=== PATIENT | male | born 1955 | race Caucasian/White ===

== ENCOUNTER → 2016-05-14 | Outpatient (CLI) | payer BC ==
[2016-05-14 13:05] LABS: BASOPHILS % (AUTO) 1 % (0-2); EOSINOPHILS # (AUTO) 0.3 10^3uL; EOSINOPHILS % (AUTO) 4 % (0-4); LYMPHOCYTES # (AUTO) 1.9 X10^3; MEAN CORPUSCULAR HEMOGLOBIN 31.6 PG (26.0-34.0); MEAN CORPUSCULAR HGB CONC 34.2 g/dL (31.0-37.0); MEAN CORPUSCULAR VOLUME 92 FL (80-100); MEAN PLATELET VOLUME 9.5 FL (6.0-9.5); MONOCYTES # (AUTO) 0.6 X10^3; MONOCYTES % (AUTO) 9 % (3-11); NEUTROPHILS # (AUTO) 4.5 X10^3; NEUTROPHILS % (AUTO) 61 % (51-67); PLATELET COUNT 249 10^3uL (150-450); WHITE BLOOD COUNT 7.41 10^3uL (4.0-11.0)
[2016-05-14 13:11] LABS: ALBUMIN 4.6 g/dL (3.4-5.0); ALKALINE PHOSPHATASE 62 U/L (38-126); ANION GAP 13.8 MEQ/L (3-15); BUN/CREATININE RATIO 27 (10-20); CALCULATED IONIZED CALCIUM 4.3 mg/dL (3.8-4.6); TOTAL PROTEIN 7.2 g/dL (6.4-8.5)
[2016-05-14 13:34] LABS: BILIRUBIN,URINE Negative (Negative); CLARITY,URINE Clear; COLOR,URINE Yellow; GLUCOSE, URINE (UA) Negative (Negative); LEUKOCYTE ESTERASE ,URINE Negative (Negative); PH,URINE 5.5 (5.0 - 8.0); UROBILINOGEN,URINE 0.2 mg/dL (0.2-1.0)
[2016-05-14 13:58] LABS: RBC,URINE 0-2 /HPF; URINE CENTRIFUGED VOLUME 12 mL
--- NOTE | 2016-05-14 14:24 | Diagnostic Imaging Report ---
INDICATION: Tongue cancer and swollen nodes. TECHNIQUE: CT neck soft tissues obtained without IV contrast. CT chest obtained without IV contrast. COMPARISON: There is no prior study for comparison. CT NECK FINDINGS: The study is limited by the lack of IV contrast. The parotid glands appear symmetric and unremarkable. The submandibular glands are not well-visualized and may be atrophic or absent. The thyroid gland showed no focal abnormality. There are no appreciably enlarged lymph nodes in the neck. There is no airway displacement or asymmetry. There is no retropharyngeal mass or abscess. There is some metallic artifact from the patient's dental work. There is degenerative change in the cervical spine diffusely. CT CHEST FINDINGS: There are no appreciably enlarged mediastinal nodes or hilar nodes. There are no enlarged axillary nodes or chest wall masses. There are a few scattered coronary artery calcifications. There is no pleural or pericardial fluid. Lung parenchymal windows show no discrete lesions. IMPRESSION: 1. CT neck is limited by lack of IV contrast but shows no overt adenopathy or soft tissue mass. 2. CT chest was unremarkable. Dictated by: Dictated on workstation # [id number]
--- NOTE | 2016-05-14 15:57 | Diagnostic Imaging Report ---
INDICATION: Tongue cancer and swollen nodes. TECHNIQUE: CT neck soft tissues obtained without IV contrast. CT chest obtained without IV contrast. COMPARISON: There is no prior study for comparison. CT NECK FINDINGS: The study is limited by the lack of IV contrast. The parotid glands appear symmetric and unremarkable. The submandibular glands are not well-visualized and may be atrophic or absent. The thyroid gland showed no focal abnormality. There are no appreciably enlarged lymph nodes in the neck. There is no airway displacement or asymmetry. There is no retropharyngeal mass or abscess. There is some metallic artifact from the patient's dental work. There is degenerative change in the cervical spine diffusely. CT CHEST FINDINGS: There are no appreciably enlarged mediastinal nodes or hilar nodes. There are no enlarged axillary nodes or chest wall masses. There are a few scattered coronary artery calcifications. There is no pleural or pericardial fluid. Lung parenchymal windows show no discrete lesions. IMPRESSION: 1. CT neck is limited by lack of IV contrast but shows no overt adenopathy or Soft tissue mass. 2. CT chest was unremarkable. Dictated by: Dictated on workstation # [id number]
== END ==
LOC: RAD 12:21
PROVIDERS: ATTEND Family Medicine
DX: Z00.00 Encounter for general adult medical examination without abnormal findings (principal); N41.0 Acute prostatitis; C02.9 Malignant neoplasm of tongue, unspecified
CPT/HCPCS: 36415; 70490; 71250; 80053; 80061; 81003; 81015; 83036; 84153; 84436; 84443; 85025; 85652; 93005